=== PATIENT | female | born 1940 | race Caucasian/White ===

== ENCOUNTER 2017-06-01 07:05 | Day surgery (SDC) | payer MEDICARE ==
[~2017-06-01] VITALS: Ht 165.1 cm; Wt 68.0 kg
[~2017-06-01 07:05] MED LIST: AMBI10TA PO; ATIV1TAB10 PO; COLA100C5 PO; FOLI400T PO; MELO15TA4 PO; METH1TAB2 PO; METH2.5TA PO; MULT1TAB10 PO; OXYB15TA PO; PRAV80TA2 PO; SERT-155 PO; SUPECAP PO; vitafusion PO
[2017-06-01] MEDS ORDERED: LR 1,000 ML IV SCH ×2 (07:30→09:45)
[2017-06-01] MEDS ORDERED: fentaNYL 100 MCG/2 ML INJECTION (J3010) As Ordered ONE (07:53)
[2017-06-01] MEDS ORDERED: MIDAZOLAM INJ 2 MG/2 ML VIAL (J2250) As Ordered ONE (07:53)
[2017-06-01] MEDS ORDERED: ePHEDrine SULFATE 25 MG/5 ML(5MG/ML) SYRINGE As Ordered ONE (07:56)
[2017-06-01] MEDS ORDERED: LIDOCAINE 1% SDV INJ 30 ML VIAL As Ordered ONE (08:32)
[2017-06-01] MEDS ORDERED: dexameTHASONE 4 MG/ML 1ML VIAL (J1100) As Ordered ONE (08:56)
[2017-06-01] MEDS ORDERED: KETOROLAC 60 MG/2 ML VIAL (J1885) As Ordered ONE (08:56)
[2017-06-01] MEDS ORDERED: PROPOFOL 200 MG/20 ML VIAL As Ordered ONE (08:56)
[2017-06-01] MEDS ORDERED: LIDOCAINE 2% INJ 100 MG/5 ML SDV (FOR ANES.) As Ordered ONE (08:56)
[2017-06-01] MEDS ORDERED: ONDANSETRON 4MG/2ML VIAL (J2405) As Ordered ONE (08:56)
[2017-06-01] MEDS ORDERED: ONDANSETRON 4MG/2ML VIAL (J2405) IV PRN (09:45)
[2017-06-01] MEDS ORDERED: fentaNYL 100 MCG/2 ML INJECTION (J3010) IV PRN (09:45)
[2017-06-01 12:45] VITALS: BP 143/70
--- NOTE | 2017-06-01 22:29 | RO ---
DATE OF PROCEDURE: 06/01/2017 PREOPERATIVE DIAGNOSIS: Urinary retention. POSTOPERATIVE DIAGNOSIS: Urinary retention. PROCEDURE: Placement of a suprapubic tube and cystoscopy. SURGEON: Dr. Kristyn Cole APN: ANESTHESIA: General. MEDICATIONS: Ancef 2 grams preoperatively. DRAINS: #18-[place] Hoyos catheter. 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 ESTIMATED BLOOD LOSS: 10 mL COMPLICATIONS: None. INDICATIONS FOR PROCEDURE: The patient is a 76-year-old female with a history of recurrent urinary tract infections, incomplete bladder emptying, and a longstanding history of severe urinary urgency and urge incontinence in a patient who had been managed by an indwelling Hoyos catheter since a cystoscopy in 11/08 showed an end- stage bladder. Urodynamic study (UDS) 10/07 showed no detrusor contractility with post void residuals (PVRs) in the 300 range. Unfortunately, the Hoyos catheter continued to fall out even with 30 mL in the balloon, so IT was decided to go ahead and place a suprapubic tube. All different options, alternatives, risks, and benefits were discussed and informed consent was obtained in both verbal and written form. DESCRIPTION OF PROCEDURE: The patient was brought into the operating room. Sequential compression devices were in place and preoperative antibiotics had been given. General anesthesia was induced. The patient was then placed in the lithotomy position, and she had a full vaginal prep and also abdominal prep. At this point, a #21-Tanzanian cystoscope was inserted. The urethra was opened, and there was no evidence of injury or abnormalities. Upon entering the bladder, both ureteral orifices were seen. There was no erythematous patches, lesions or stones. There were multiple diverticulum especially on the right lateral wall. At this point, a Jossue forceps was placed through the urethra up to the suprapubic area where an incision was then made. The Jossue forceps was then pushed to the end of the bladder lining where another incision was made and then this was pushed up through skin An #18-T[place] Hoyos catheter was then grasped by the Jossue forceps and brought back into the bladder. The balloon was filled with 20 mL. The catheter was irrigated and working well. At this point, a dressing was placed with some tension on the catheter, bringing the balloon and the bladder lining up to the suprapubic area. The patient tolerated the procedure well and was returned to the recovery room in stable condition.
== END 2017-06-01 13:04 | disposition home or self-care (01) ==
LOC: M SDC 07:05
PROVIDERS: ATTEND Specialist
DX: R33.9 Retention of urine, unspecified (principal); R32 Unspecified urinary incontinence; G35 Multiple sclerosis; I73.00 Raynaud's syndrome without gangrene; M06.9 Rheumatoid arthritis, unspecified; I10 Essential (primary) hypertension; F32.9 Major depressive disorder, single episode, unspecified; R94.31 Abnormal electrocardiogram [ECG] [EKG]; M15.0 Primary generalized (osteo)arthritis; Z88.5 Allergy status to narcotic agent; Z79.899 Other long term (current) drug therapy; Z79.82 Long term (current) use of aspirin; Z96.611 Presence of right artificial shoulder joint; Z96.641 Presence of right artificial hip joint; Z98.51 Tubal ligation status; Z86.19 Personal history of other infectious and parasitic diseases; Z78.0 Asymptomatic menopausal state; Z87.891 Personal history of nicotine dependence
CPT/HCPCS: 51102; J0690; J1100; J1885; J2405; J3010

== ENCOUNTER 2022-02-03 03:05 | Inpatient (IN) | payer MEDICARE, MEDICAID ==
[~2022-02-03] VITALS: Ht 165.1 cm; Wt 62.8 kg
[2022-02-03] MEDS: NS 1,000 ML IV SCH ×2 (02:51→06:34)
[~2022-02-03 03:05] MED LIST changes: -FOLI400T PO; +FOLI400T13 PO; +MELO15TA28 PO; -MELO15TA4 PO; +METH-855 PO; -METH1TAB2 PO; +METH2.5T48 PO; -METH2.5TA PO; -OXYB15TA PO; +OXYB15TA14 PO; -SERT-155 PO; +SERT50TA29 PO
[2022-02-03 04:59] VITALS: BP 110/62
[2022-02-03 05:03] VITALS: BP 110/62
[2022-02-03 06:00] VITALS: BP 115/68
[2022-02-03] MEDS ORDERED: VANCOMYCIN HCL 15 MG in IV FLUID PLACE HOLDER 1 EA IV SCH (06:10)
[2022-02-03] MEDS ORDERED: VITMTA PO (07:39)
[2022-02-03] MEDS ORDERED: SENN-80 PO (07:39)
[2022-02-03] MEDS ORDERED: FLEEENE12 PR (07:39)
[2022-02-03] MEDS ORDERED: VITA500C24 PO (07:39)
[2022-02-03] MEDS ORDERED: MILKSUS3 PO (07:39)
[2022-02-03] MEDS ORDERED: QC A650T3 PO (07:39)
[2022-02-03] MEDS ORDERED: SERT25TA85 PO (07:39)
[2022-02-03] MEDS ORDERED: LACT20EL PO (07:39)
[2022-02-03] MEDS ORDERED: MORP15TA2 PO (07:39)
[2022-02-03] MEDS ORDERED: FOLI1TAB11 PO (07:39)
[2022-02-03] MEDS ORDERED: PRAV40TA2 PO (07:39)
[2022-02-03] MEDS ORDERED: BACL10TA2 PO (07:39)
[2022-02-03] MEDS ORDERED: D-MA500C2 PO (07:39)
[2022-02-03] MEDS ORDERED: BISA10SU4 PR (07:39)
[2022-02-03] MEDS ORDERED: HOME MED LIST COMPLETE! XX SCH (07:45)
[2022-02-03 09:25] LABS: BASO # 0.1 10^3/uL (0.0-0.2); BASO % 0.5 % (0.0-1.0); EOS # 0.1 10^3/uL (0.0-0.5); EOS % 0.4 % (0.0-3.0); HEMATOCRIT 26.2 % (36.0-47.0); HEMOGLOBIN 8.1 g/dl (12.0-15.5); LYMPH # 1.5 10^3/uL (1.5-5.0); LYMPH % 9.9 % (24.0-44.0); MEAN CORPUSCULAR HEMOGLOBIN 31.8 pg (27.0-33.0); MEAN CORPUSCULAR HGB CONC 30.9 g/dl (32.0-36.5); MEAN CORPUSCULAR VOLUME 102.7 fl (80.0-96.0); MONO # 1.1 10^3/uL (0.0-0.8); MONO % 7.4 % (2.0-8.0); NEUTROPHILS # 12.1 10^3/uL (1.5-8.5); NEUTROPHILS % 81.2 % (36.0-66.0); PLATELET COUNT, AUTOMATED 334 10^3/uL (150-450); RED BLOOD COUNT 2.55 10^6/uL (4.00-5.40); WHITE BLOOD COUNT 14.9 10^3/uL (4.0-10.0)
[2022-02-03 09:49] LABS: ALBUMIN 2.2 GM/DL (3.2-5.2); ALT/SGPT 32 U/L (12-78); BILIRUBIN,TOTAL 0.4 MG/DL (0.2-1.0); BLOOD UREA NITROGEN 12 MG/DL (7-18); CALCIUM LEVEL 8.3 MG/DL (8.8-10.2); CARBON DIOXIDE LEVEL 27 MEQ/L (21-32); CHLORIDE LEVEL 109 MEQ/L (98-107); CREATININE FOR GFR 0.78 MG/DL (0.55-1.30); GLOMERULAR FILTRATION RATE > 60.0 (>32); GLUCOSE, FASTING 108 MG/DL (70-100); MAGNESIUM LEVEL 2.4 MG/DL (1.8-2.4); PHOSPHORUS LEVEL 3.8 MG/DL (2.5-4.9); SODIUM LEVEL 141 MEQ/L (136-145)
[2022-02-03] MEDS: HEPARIN SOD (PORCINE) 5000UNITS/ML 1ML VIAL/SYRINGE SC SCH ×2 (10:22→20:30)
[2022-02-03] MEDS: PIPERACILLIN/TAZOBACTAM SOD 3.375 GM in D5W MINI-BAG PLUS 50 ML IV SCH ×3 (10:22→21:00)
[2022-02-03] MEDS ORDERED: MORPHINE 30 MG TAB **MSIR PO PRN (12:40)
[2022-02-03] MEDS: VANCOMYCIN HCL 750 MG, VIAL MATE ADAPTER 1 EACH in NS 250 ML IV SCH ×2 (12:44→23:33)
[2022-02-03] MEDS ORDERED: PILL CUTTER 1 EACH XX PRN (13:40)
[2022-02-03 14:00] VITALS: BP 122/59
[2022-02-03] MEDS: SENNA 8.6 MG TAB (SENOKOT) PO SCH ×2 (15:57→20:30)
[2022-02-03] MEDS: ACETAMINOPHEN TAB 650MG DOSE (2X325MG) PO PRN ×2 (15:58→23:06)
[2022-02-03 20:00] VITALS: BP 106/53
[2022-02-03] MEDS: PRAVASTATIN 20 MG TAB PO SCH (20:30)
[2022-02-03 22:55] VITALS: BP 106/77
[2022-02-03] MEDS ORDERED: MORPHINE 2 MG/ML 1ML VIAL IV ONE (23:25)
[2022-02-04] MEDS: PIPERACILLIN/TAZOBACTAM SOD 3.375 GM in D5W MINI-BAG PLUS 50 ML IV SCH ×4 (03:25→21:42)
[2022-02-04 06:00] VITALS: BP 121/56
[2022-02-04 08:01] LABS: BASO # 0.1 10^3/uL (0.0-0.2); BASO % 0.8 % (0.0-1.0); EOS # 0.1 10^3/uL (0.0-0.5); EOS % 1.4 % (0.0-3.0); HEMATOCRIT 24.3 % (36.0-47.0); HEMOGLOBIN 7.4 g/dl (12.0-15.5); LYMPH # 1.2 10^3/uL (1.5-5.0); MEAN CORPUSCULAR HEMOGLOBIN 31.6 pg (27.0-33.0); MEAN CORPUSCULAR HGB CONC 30.5 g/dl (32.0-36.5); MEAN CORPUSCULAR VOLUME 103.8 fl (80.0-96.0); MONO # 0.6 10^3/uL (0.0-0.8); MONO % 6.7 % (2.0-8.0); NEUTROPHILS # 6.4 10^3/uL (1.5-8.5); NEUTROPHILS % 76.6 % (36.0-66.0); PLATELET COUNT, AUTOMATED 303 10^3/uL (150-450); RED BLOOD COUNT 2.34 10^6/uL (4.00-5.40); WHITE BLOOD COUNT 8.4 10^3/uL (4.0-10.0)
[2022-02-04 08:26] LABS: ERYTHROCYTE SEDIMENTATION RATE 123 mm/hr (0-30)
[2022-02-04 08:31] LABS: ALBUMIN 2.2 GM/DL (3.2-5.2); ALT/SGPT 26 U/L (12-78); BILIRUBIN,TOTAL 0.4 MG/DL (0.2-1.0); BLOOD UREA NITROGEN 10 MG/DL (7-18); CARBON DIOXIDE LEVEL 24 MEQ/L (21-32); CHLORIDE LEVEL 110 MEQ/L (98-107); CREATININE FOR GFR 0.58 MG/DL (0.55-1.30); GLOMERULAR FILTRATION RATE > 60.0 (>32); GLUCOSE, FASTING 76 MG/DL (70-100); MAGNESIUM LEVEL 2.2 MG/DL (1.8-2.4); PHOSPHORUS LEVEL 3.5 MG/DL (2.5-4.9); POTASSIUM SERUM 3.5 MEQ/L (3.5-5.1); SODIUM LEVEL 141 MEQ/L (136-145); TOTAL PROTEIN 5.6 GM/DL (6.4-8.2)
[2022-02-04] MEDS: HEPARIN SOD (PORCINE) 5000UNITS/ML 1ML VIAL/SYRINGE SC SCH ×2 (09:31→21:42)
[2022-02-04] MEDS: MORPHINE SULFATE ORAL SOLN 10 MG/5 ML UD SL PRN (09:31)
[2022-02-04] MEDS: SENNA 8.6 MG TAB (SENOKOT) PO SCH ×2 (09:32→21:00)
[2022-02-04] MEDS: SERTRALINE HCL 25 MG TABLET PO SCH (09:32)
[2022-02-04] MEDS: FOLIC ACID 1 MG TAB PO SCH (09:32)
[2022-02-04] MEDS: VANCOMYCIN HCL 750 MG, VIAL MATE ADAPTER 1 EACH in NS 250 ML IV SCH ×2 (12:14→23:37)
[2022-02-04 14:00] VITALS: BP 122/55
[2022-02-04 21:38] VITALS: BP 130/60
[2022-02-04] MEDS: PRAVASTATIN 20 MG TAB PO SCH (21:42)
[2022-02-05] MEDS: PIPERACILLIN/TAZOBACTAM SOD 3.375 GM in D5W MINI-BAG PLUS 50 ML IV SCH ×4 (03:41→21:03)
[2022-02-05] MEDS: POLYVINYL ALCOHOL OPHTH SOLN 15 ML(LIQUITEARS) OU PRN (03:41)
[2022-02-05] MEDS: MORPHINE SULFATE ORAL SOLN 10 MG/5 ML UD SL PRN ×2 (03:42→17:00)
[2022-02-05 06:00] VITALS: BP 120/59
[2022-02-05 06:36] LABS: BASO # 0.1 10^3/uL (0.0-0.2); BASO % 0.9 % (0.0-1.0); EOS # 0.2 10^3/uL (0.0-0.5); EOS % 1.4 % (0.0-3.0); HEMATOCRIT 28.4 % (36.0-47.0); HEMOGLOBIN 8.6 g/dl (12.0-15.5); LYMPH # 1.3 10^3/uL (1.5-5.0); LYMPH % 12.2 % (24.0-44.0); MEAN CORPUSCULAR HEMOGLOBIN 30.8 pg (27.0-33.0); MEAN CORPUSCULAR HGB CONC 30.3 g/dl (32.0-36.5); MEAN CORPUSCULAR VOLUME 101.8 fl (80.0-96.0); MONO # 0.7 10^3/uL (0.0-0.8); MONO % 6.7 % (2.0-8.0); NEUTROPHILS # 8.2 10^3/uL (1.5-8.5); NEUTROPHILS % 77.9 % (36.0-66.0); RED BLOOD COUNT 2.79 10^6/uL (4.00-5.40); WHITE BLOOD COUNT 10.5 10^3/uL (4.0-10.0)
[2022-02-05 06:59] LABS: PLATELET COUNT, AUTOMATED 412 10^3/uL (150-450)
[2022-02-05 07:06] LABS: BLOOD UREA NITROGEN 8 MG/DL (7-18); C REACTIVE PROTEIN QUANTITATIV 8.26 MG/DL (0.00-0.30); CALCIUM LEVEL 7.4 MG/DL (8.8-10.2); CARBON DIOXIDE LEVEL 23 MEQ/L (21-32); CHLORIDE LEVEL 108 MEQ/L (98-107); CREATININE FOR GFR 0.67 MG/DL (0.55-1.30); GLOMERULAR FILTRATION RATE > 60.0 (>32); GLUCOSE, FASTING 106 MG/DL (70-100); MAGNESIUM LEVEL 2.1 MG/DL (1.8-2.4); PHOSPHORUS LEVEL 2.9 MG/DL (2.5-4.9); POTASSIUM SERUM 3.6 MEQ/L (3.5-5.1); SODIUM LEVEL 139 MEQ/L (136-145)
[2022-02-05 07:43] LABS: ERYTHROCYTE SEDIMENTATION RATE 109 mm/hr (0-30)
[2022-02-05] MEDS: SENNA 8.6 MG TAB (SENOKOT) PO SCH ×2 (09:28→21:00)
[2022-02-05] MEDS: FOLIC ACID 1 MG TAB PO SCH (09:28)
[2022-02-05] MEDS: SERTRALINE HCL 25 MG TABLET PO SCH (09:28)
[2022-02-05] MEDS: HEPARIN SOD (PORCINE) 5000UNITS/ML 1ML VIAL/SYRINGE SC SCH (09:29)
[2022-02-05 12:00] LABS: FERRITIN 309 NG/ML (8-252); IRON (FE) 20 UG/DL (50-170); PERCENT SATURATION 12.8 % (13.2-45.0); TOTAL IRON BINDING CAPACITY 156 UG/DL (250-450)
[2022-02-05 14:00] VITALS: BP 123/61
[2022-02-05] MEDS: VANCOMYCIN HCL 1,000 MG, VIAL MATE ADAPTER 1 EACH in NS 250 ML IV SCH (18:50)
[2022-02-05] MEDS: ACETAMINOPHEN TAB 650MG DOSE (2X325MG) PO PRN (21:03)
[2022-02-05] MEDS: ENOXAPARIN 40MG/0.4ML SYRINGE (J1650 PER 10MG) SC SCH (21:04)
[2022-02-05] MEDS: PRAVASTATIN 20 MG TAB PO SCH (21:04)
[2022-02-05 22:00] VITALS: BP 124/78
[2022-02-06] MEDS: MORPHINE SULFATE ORAL SOLN 10 MG/5 ML UD SL PRN ×2 (02:51→10:00)
[2022-02-06] MEDS: PIPERACILLIN/TAZOBACTAM SOD 3.375 GM in D5W MINI-BAG PLUS 50 ML IV SCH ×4 (03:26→22:37)
[2022-02-06 06:00] VITALS: BP 129/66
[2022-02-06 07:25] LABS: BASO # 0.1 10^3/uL (0.0-0.2); BASO % 0.7 % (0.0-1.0); EOS # 0.2 10^3/uL (0.0-0.5); HEMATOCRIT 25.4 % (36.0-47.0); HEMOGLOBIN 7.7 g/dl (12.0-15.5); LYMPH # 1.4 10^3/uL (1.5-5.0); LYMPH % 16.9 % (24.0-44.0); MEAN CORPUSCULAR HEMOGLOBIN 31.4 pg (27.0-33.0); MEAN CORPUSCULAR HGB CONC 30.3 g/dl (32.0-36.5); MEAN CORPUSCULAR VOLUME 103.7 fl (80.0-96.0); MONO # 0.8 10^3/uL (0.0-0.8); MONO % 9.8 % (2.0-8.0); PLATELET COUNT, AUTOMATED 317 10^3/uL (150-450); RED BLOOD COUNT 2.45 10^6/uL (4.00-5.40); WHITE BLOOD COUNT 8.5 10^3/uL (4.0-10.0)
[2022-02-06 08:00] LABS: ALBUMIN 1.9 GM/DL (3.2-5.2); ALT/SGPT 17 U/L (12-78); BILIRUBIN,TOTAL 0.3 MG/DL (0.2-1.0); BLOOD UREA NITROGEN 7 MG/DL (7-18); CARBON DIOXIDE LEVEL 25 MEQ/L (21-32); CHLORIDE LEVEL 116 MEQ/L (98-107); CREATININE FOR GFR 0.63 MG/DL (0.55-1.30); GLOMERULAR FILTRATION RATE > 60.0 (>32); GLUCOSE, FASTING 97 MG/DL (70-100); MAGNESIUM LEVEL 2.2 MG/DL (1.8-2.4); PHOSPHORUS LEVEL 2.8 MG/DL (2.5-4.9); POTASSIUM SERUM 3.8 MEQ/L (3.5-5.1); SODIUM LEVEL 146 MEQ/L (136-145); TOTAL PROTEIN 5.3 GM/DL (6.4-8.2)
[2022-02-06] MEDS: SENNA 8.6 MG TAB (SENOKOT) PO SCH ×2 (09:47→22:36)
[2022-02-06] MEDS: FOLIC ACID 1 MG TAB PO SCH (09:47)
[2022-02-06] MEDS: SERTRALINE HCL 25 MG TABLET PO SCH (09:48)
[2022-02-06 14:00] VITALS: BP 122/67
[2022-02-06] MEDS: VANCOMYCIN HCL 1,000 MG, VIAL MATE ADAPTER 1 EACH in NS 250 ML IV SCH (18:10)
[2022-02-06 22:00] VITALS: BP 106/53
[2022-02-06] MEDS: ACETAMINOPHEN TAB 650MG DOSE (2X325MG) PO PRN (22:37)
[2022-02-06] MEDS: ENOXAPARIN 40MG/0.4ML SYRINGE (J1650 PER 10MG) SC SCH (22:37)
[2022-02-06] MEDS: PRAVASTATIN 20 MG TAB PO SCH (22:37)
[2022-02-07] MEDS: PIPERACILLIN/TAZOBACTAM SOD 3.375 GM in D5W MINI-BAG PLUS 50 ML IV SCH ×4 (04:26→21:36)
[2022-02-07 06:00] VITALS: BP 124/57
[2022-02-07 06:48] LABS: BASO # 0.1 10^3/uL (0.0-0.2); EOS # 0.2 10^3/uL (0.0-0.5); EOS % 2.7 % (0.0-3.0); HEMATOCRIT 26.4 % (36.0-47.0); LYMPH # 1.8 10^3/uL (1.5-5.0); LYMPH % 22.5 % (24.0-44.0); MEAN CORPUSCULAR HEMOGLOBIN 31.4 pg (27.0-33.0); MEAN CORPUSCULAR HGB CONC 30.3 g/dl (32.0-36.5); MEAN CORPUSCULAR VOLUME 103.5 fl (80.0-96.0); MONO # 0.9 10^3/uL (0.0-0.8); NEUTROPHILS # 5.1 10^3/uL (1.5-8.5); NEUTROPHILS % 62.2 % (36.0-66.0); PLATELET COUNT, AUTOMATED 282 10^3/uL (150-450); RED BLOOD COUNT 2.55 10^6/uL (4.00-5.40); WHITE BLOOD COUNT 8.2 10^3/uL (4.0-10.0)
[2022-02-07 07:02] LABS: BLOOD UREA NITROGEN 6 MG/DL (7-18); C REACTIVE PROTEIN QUANTITATIV 3.62 MG/DL (0.00-0.30); CALCIUM LEVEL 7.9 MG/DL (8.8-10.2); CARBON DIOXIDE LEVEL 22 MEQ/L (21-32); CHLORIDE LEVEL 118 MEQ/L (98-107); CREATININE FOR GFR 0.56 MG/DL (0.55-1.30); GLOMERULAR FILTRATION RATE > 60.0 (>32); GLUCOSE, FASTING 75 MG/DL (70-100); MAGNESIUM LEVEL 2.1 MG/DL (1.8-2.4); PHOSPHORUS LEVEL 2.8 MG/DL (2.5-4.9); POTASSIUM SERUM 3.5 MEQ/L (3.5-5.1); SODIUM LEVEL 145 MEQ/L (136-145)
[2022-02-07 07:15] LABS: ERYTHROCYTE SEDIMENTATION RATE 86 mm/hr (0-30)
[2022-02-07 07:56] LABS: FOLATE 14.6 NG/ML
[2022-02-07] MEDS: SENNA 8.6 MG TAB (SENOKOT) PO SCH ×2 (08:54→21:37)
[2022-02-07] MEDS: SERTRALINE HCL 25 MG TABLET PO SCH (08:54)
[2022-02-07] MEDS: FOLIC ACID 1 MG TAB PO SCH (08:54)
[2022-02-07] MEDS: MORPHINE SULFATE ORAL SOLN 10 MG/5 ML UD SL PRN ×2 (09:06→16:37)
[2022-02-07 14:00] VITALS: BP 95/60
[2022-02-07 14:42] VITALS: BP 104/60
[2022-02-07] MEDS: ACETAMINOPHEN TAB 650MG DOSE (2X325MG) PO PRN (15:51)
[2022-02-07] MEDS: VANCOMYCIN HCL 1,000 MG, VIAL MATE ADAPTER 1 EACH in NS 250 ML IV SCH (17:46)
[2022-02-07] MEDS ORDERED: KETOROLAC 30 MG/ML 1ML VIAL IV ONE (18:10)
[2022-02-07 20:00] VITALS: BP 112/58
[2022-02-07] MEDS: PRAVASTATIN 20 MG TAB PO SCH (21:35)
[2022-02-07] MEDS: ENOXAPARIN 40MG/0.4ML SYRINGE (J1650 PER 10MG) SC SCH (21:35)
[2022-02-07] MEDS: POLYVINYL ALCOHOL OPHTH SOLN 15 ML(LIQUITEARS) OU PRN (21:36)
[2022-02-08] MEDS: PIPERACILLIN/TAZOBACTAM SOD 3.375 GM in D5W MINI-BAG PLUS 50 ML IV SCH ×4 (04:43→21:58)
[2022-02-08 06:18] VITALS: BP 125/59
[2022-02-08] MEDS: POLYVINYL ALCOHOL OPHTH SOLN 15 ML(LIQUITEARS) OU PRN (08:00)
[2022-02-08 08:21] VITALS: BP 137/58
[2022-02-08] MEDS: SERTRALINE HCL 25 MG TABLET PO SCH (09:24)
[2022-02-08] MEDS: FOLIC ACID 1 MG TAB PO SCH (09:24)
[2022-02-08] MEDS: SENNA 8.6 MG TAB (SENOKOT) PO SCH ×2 (09:24→21:57)
[2022-02-08 09:42] LABS: BASO # 0.1 10^3/uL (0.0-0.2); BASO % 0.7 % (0.0-1.0); EOS # 0.2 10^3/uL (0.0-0.5); EOS % 2.8 % (0.0-3.0); HEMATOCRIT 27.1 % (36.0-47.0); HEMOGLOBIN 8.2 g/dl (12.0-15.5); LYMPH # 1.3 10^3/uL (1.5-5.0); LYMPH % 15.8 % (24.0-44.0); MEAN CORPUSCULAR HEMOGLOBIN 31.5 pg (27.0-33.0); MEAN CORPUSCULAR HGB CONC 30.3 g/dl (32.0-36.5); MEAN CORPUSCULAR VOLUME 104.2 fl (80.0-96.0); MONO # 0.6 10^3/uL (0.0-0.8); NEUTROPHILS # 6.1 10^3/uL (1.5-8.5); NEUTROPHILS % 73.1 % (36.0-66.0); PLATELET COUNT, AUTOMATED 322 10^3/uL (150-450); WHITE BLOOD COUNT 8.3 10^3/uL (4.0-10.0)
[2022-02-08 10:00] LABS: ERYTHROCYTE SEDIMENTATION RATE 79 mm/hr (0-30)
[2022-02-08 10:07] LABS: BLOOD UREA NITROGEN 7 MG/DL (7-18); C REACTIVE PROTEIN QUANTITATIV 2.88 MG/DL (0.00-0.30); CALCIUM LEVEL 8.1 MG/DL (8.8-10.2); CARBON DIOXIDE LEVEL 24 MEQ/L (21-32); CHLORIDE LEVEL 114 MEQ/L (98-107); CREATININE FOR GFR 0.66 MG/DL (0.55-1.30); GLOMERULAR FILTRATION RATE > 60.0 (>32); GLUCOSE, FASTING 117 MG/DL (70-100); MAGNESIUM LEVEL 2.1 MG/DL (1.8-2.4); PHOSPHORUS LEVEL 2.5 MG/DL (2.5-4.9); POTASSIUM SERUM 3.5 MEQ/L (3.5-5.1); SODIUM LEVEL 145 MEQ/L (136-145); VANCOMYCIN RANDOM 16.3 UG/ML
[2022-02-08] MEDS: ACETAMINOPHEN TAB 650MG DOSE (2X325MG) PO PRN (10:11)
[2022-02-08 14:00] VITALS: BP 141/68
[2022-02-08] MEDS: PRAVASTATIN 20 MG TAB PO SCH (21:57)
[2022-02-08] MEDS: ENOXAPARIN 40MG/0.4ML SYRINGE (J1650 PER 10MG) SC SCH (21:58)
[2022-02-08 22:00] VITALS: BP 146/75
[2022-02-09] MEDS: PIPERACILLIN/TAZOBACTAM SOD 3.375 GM in D5W MINI-BAG PLUS 50 ML IV SCH ×4 (04:15→20:26)
[2022-02-09 06:00] VITALS: BP 158/76
[2022-02-09 08:17] LABS: BLOOD UREA NITROGEN 11 MG/DL (7-18); CALCIUM LEVEL 8.2 MG/DL (8.8-10.2); CARBON DIOXIDE LEVEL 26 MEQ/L (21-32); CHLORIDE LEVEL 112 MEQ/L (98-107); CREATININE FOR GFR 0.56 MG/DL (0.55-1.30); GLOMERULAR FILTRATION RATE > 60.0 (>32); GLUCOSE, FASTING 95 MG/DL (70-100); POTASSIUM SERUM 3.1 MEQ/L (3.5-5.1); SODIUM LEVEL 145 MEQ/L (136-145); VANCOMYCIN RANDOM 10.6 UG/ML
[2022-02-09] MEDS ORDERED: VANCOMYCIN HCL 500 MG in D5W MINI-BAG PLUS 100 ML IV SCH (09:00)
[2022-02-09] MEDS: SERTRALINE HCL 25 MG TABLET PO SCH (09:08)
[2022-02-09] MEDS: SENNA 8.6 MG TAB (SENOKOT) PO SCH ×2 (09:09→20:26)
[2022-02-09] MEDS: FOLIC ACID 1 MG TAB PO SCH (09:09)
[2022-02-09] MEDS ORDERED: POTASSIUM CHLORIDE 10MEQ SR TABLET PO ONE (12:30)
[2022-02-09] MEDS ORDERED: POTASSIUM CHLORIDE 10% LIQ 20 MEQ/15 ML UDC PO ONE (12:55)
[2022-02-09 14:00] VITALS: BP 126/59
[2022-02-09] MEDS: PRAVASTATIN 20 MG TAB PO SCH (20:26)
[2022-02-09] MEDS: ENOXAPARIN 40MG/0.4ML SYRINGE (J1650 PER 10MG) SC SCH (20:26)
[2022-02-09] MEDS: ACETAMINOPHEN TAB 650MG DOSE (2X325MG) PO PRN (20:27)
[2022-02-09 22:00] VITALS: BP 132/62
[2022-02-10] MEDS: D5W/0.45% SODIUM CHLORIDE 1,000 ML IV SCH ×3 (00:20→21:06)
[2022-02-10] MEDS: PIPERACILLIN/TAZOBACTAM SOD 3.375 GM in D5W MINI-BAG PLUS 50 ML IV SCH ×4 (04:27→21:02)
[2022-02-10 06:00] VITALS: BP 156/74
[2022-02-10 08:15] LABS: HEMATOCRIT 30.5 % (36.0-47.0); HEMOGLOBIN 9.6 g/dl (12.0-15.5); MEAN CORPUSCULAR HGB CONC 31.5 g/dl (32.0-36.5); MEAN CORPUSCULAR VOLUME 101.7 fl (80.0-96.0); PLATELET COUNT, AUTOMATED 337 10^3/uL (150-450); WHITE BLOOD COUNT 7.5 10^3/uL (4.0-10.0)
[2022-02-10 08:38] LABS: ERYTHROCYTE SEDIMENTATION RATE 96 mm/hr (0-30)
[2022-02-10 08:40] LABS: BLOOD UREA NITROGEN 8 MG/DL (7-18); C REACTIVE PROTEIN QUANTITATIV 1.42 MG/DL (0.00-0.30); CALCIUM LEVEL 8.2 MG/DL (8.8-10.2); CARBON DIOXIDE LEVEL 29 MEQ/L (21-32); CHLORIDE LEVEL 111 MEQ/L (98-107); CREATININE FOR GFR 0.59 MG/DL (0.55-1.30); GLOMERULAR FILTRATION RATE > 60.0 (>32); GLUCOSE, FASTING 98 MG/DL (70-100); MAGNESIUM LEVEL 2.2 MG/DL (1.8-2.4); POTASSIUM SERUM 3.2 MEQ/L (3.5-5.1); SODIUM LEVEL 148 MEQ/L (136-145)
[2022-02-10 09:02] LABS: ATYPICAL LYMPH 2 % (0-5); BASOPHILS 3 % (0-1); EOSINOPHILS 5 % (0-3); LYMPHOCYTES 16 % (16-44); MONOCYTES 5 % (0-5); NEUTROPHILS 67 % (28-66); OVALOCYTES 2+
[2022-02-10 09:03] LABS: PLATELET ESTIMATE NORMAL (NORMAL)
[2022-02-10] MEDS: MORPHINE SULFATE ORAL SOLN 10 MG/5 ML UD SL PRN (09:23)
[2022-02-10] MEDS: VANCOMYCIN HCL 750 MG, VIAL MATE ADAPTER 1 EACH in NS 250 ML IV SCH (09:24)
[2022-02-10] MEDS: SENNA 8.6 MG TAB (SENOKOT) PO SCH ×2 (09:25→21:02)
[2022-02-10] MEDS: SERTRALINE HCL 25 MG TABLET PO SCH (09:25)
[2022-02-10] MEDS: FOLIC ACID 1 MG TAB PO SCH (09:25)
[2022-02-10] MEDS ORDERED: MORPHINE 10MG/0.5ML ORAL CONCENTRATE SOLUTION U/D SL PRN (13:15)
[2022-02-10] MEDS ORDERED: propofoL 200 MG/20 ML VIAL As Ordered ONE (13:30)
[2022-02-10] MEDS ORDERED: ROCURONIUM BROMIDE 50 MG/5 ML VIAL As Ordered ONE (13:30)
[2022-02-10] MEDS ORDERED: fentaNYL 100 MCG/2 ML INJECTION As Ordered ONE (13:32)
[2022-02-10] MEDS ORDERED: ONDANSETRON 4MG/2ML VIAL As Ordered ONE (14:14)
[2022-02-10] MEDS ORDERED: SUGAMMADEX SODIUM 500 MG/5 ML VIAL (BRIDION) As Ordered ONE (14:15)
[2022-02-10] MEDS ORDERED: ePHEDrine SULFATE 25 MG/5 ML(5MG/ML) SYRINGE As Ordered ONE (14:16)
[2022-02-10] MEDS ORDERED: HYDROmorphone HCL 2MG/ML 1ML VIAL As Ordered ONE (14:22)
[2022-02-10] MEDS ORDERED: ACETAMINOPHEN 1000MG 100ML IV BTL (OFIRMEV) (J0131 PER 10MG) As Ordered ONE (15:16)
[2022-02-10] MEDS ORDERED: fentaNYL 100 MCG/2 ML INJECTION IV PRN (16:00)
[2022-02-10] MEDS ORDERED: oxyCODONE 5MG TAB PO PRN (16:00)
[2022-02-10] MEDS ORDERED: LR 1,000 ML IV SCH (16:00)
[2022-02-10] MEDS ORDERED: ONDANSETRON 4MG/2ML VIAL IV PRN (16:00)
[2022-02-10] MEDS ORDERED: MEPERIDINE INJ 25 MG/ML VIAL (J2175) IV PRN (16:00)
[2022-02-10 16:33] VITALS: BP 101/53
[2022-02-10 17:00] VITALS: BP 101/52
[2022-02-10 18:00] VITALS: BP 102/53
[2022-02-10 19:00] VITALS: BP 131/67
[2022-02-10 20:54] VITALS: BP 123/61
[2022-02-10] MEDS: PRAVASTATIN 20 MG TAB PO SCH (21:02)
[2022-02-10] MEDS: PERCOCET 5MG/325MG TAB PO PRN (21:12)
[2022-02-11] VITALS (8 sets, daily range): BP systolic 109–128; BP diastolic 47–58
[2022-02-11] MEDS: HYDROMORPHONE HCL 0.5 MG/ 0.5 ML SYRINGE (J1170 PER 1) IV PRN ×2 (00:02→20:32)
[2022-02-11] MEDS: PIPERACILLIN/TAZOBACTAM SOD 3.375 GM in D5W MINI-BAG PLUS 50 ML IV SCH ×2 (04:23→10:23)
[2022-02-11] MEDS: SERTRALINE HCL 25 MG TABLET PO SCH (07:38)
[2022-02-11] MEDS: POTASSIUM CHLORIDE 10MEQ SR TABLET PO SCH (07:39)
[2022-02-11] MEDS: FOLIC ACID 1 MG TAB PO SCH (07:40)
[2022-02-11] MEDS: SENNA 8.6 MG TAB (SENOKOT) PO SCH ×2 (07:40→20:31)
[2022-02-11] MEDS: PERCOCET 5MG/325MG TAB PO PRN ×3 (07:42→16:53)
[2022-02-11 08:40] LABS: HEMOGLOBIN 8.2 g/dl (12.0-15.5); MEAN CORPUSCULAR HEMOGLOBIN 31.8 pg (27.0-33.0); MEAN CORPUSCULAR HGB CONC 30.4 g/dl (32.0-36.5); MEAN CORPUSCULAR VOLUME 104.7 fl (80.0-96.0); PLATELET COUNT, AUTOMATED 303 10^3/uL (150-450); RED BLOOD COUNT 2.58 10^6/uL (4.00-5.40); WHITE BLOOD COUNT 11.4 10^3/uL (4.0-10.0)
[2022-02-11 09:00] LABS: BLOOD UREA NITROGEN 7 MG/DL (7-18); CALCIUM LEVEL 7.7 MG/DL (8.8-10.2); CARBON DIOXIDE LEVEL 26 MEQ/L (21-32); CHLORIDE LEVEL 109 MEQ/L (98-107); CREATININE FOR GFR 0.69 MG/DL (0.55-1.30); GLOMERULAR FILTRATION RATE > 60.0 (>32); GLUCOSE, FASTING 141 MG/DL (70-100); MAGNESIUM LEVEL 2.1 MG/DL (1.8-2.4); PHOSPHORUS LEVEL 3.4 MG/DL (2.5-4.9); POTASSIUM SERUM 3.1 MEQ/L (3.5-5.1); SODIUM LEVEL 145 MEQ/L (136-145)
[2022-02-11 09:08] LABS: ATYPICAL LYMPH 2 % (0-5); EOSINOPHILS 2 % (0-3); LYMPHOCYTES 7 % (16-44); MONOCYTES 12 % (0-5); NEUTROPHILS 76 % (28-66)
[2022-02-11 09:09] LABS: OVALOCYTES 1+; TEAR DROP CELLS 1+
[2022-02-11 09:10] LABS: MICROCYTOSIS 1+; PLATELET ESTIMATE NORMAL (NORMAL)
[2022-02-11] MEDS: VANCOMYCIN HCL 750 MG, VIAL MATE ADAPTER 1 EACH in NS 250 ML IV SCH (09:10)
[2022-02-11] MEDS: D5W/0.45% SODIUM CHLORIDE 1,000 ML IV SCH (16:54)
[2022-02-11] MEDS: ACETAMINOPHEN TAB 650MG DOSE (2X325MG) PO PRN (18:17)
[2022-02-11] MEDS: PRAVASTATIN 20 MG TAB PO SCH (20:31)
[2022-02-11] MEDS: ENOXAPARIN 40MG/0.4ML SYRINGE (J1650 PER 10MG) SC SCH (20:31)
[2022-02-12] MEDS: PERCOCET 5MG/325MG TAB PO PRN ×4 (03:32→19:57)
[2022-02-12 06:40] VITALS: BP 122/61
[2022-02-12] MEDS: SENNA 8.6 MG TAB (SENOKOT) PO SCH ×2 (09:19→19:56)
[2022-02-12] MEDS: SERTRALINE HCL 25 MG TABLET PO SCH (09:41)
[2022-02-12] MEDS: FOLIC ACID 1 MG TAB PO SCH (09:42)
[2022-02-12] MEDS: POTASSIUM CHLORIDE 10MEQ SR TABLET PO SCH (09:44)
[2022-02-12 10:00] VITALS: BP 122/74
[2022-02-12 14:00] VITALS: BP 140/72
[2022-02-12 14:15] VITALS: BP 140/72
[2022-02-12 18:00] VITALS: BP 115/64
[2022-02-12] MEDS: ENOXAPARIN 40MG/0.4ML SYRINGE (J1650 PER 10MG) SC SCH (19:55)
[2022-02-12] MEDS: PRAVASTATIN 20 MG TAB PO SCH (19:56)
[2022-02-12 22:00] VITALS: BP 141/89
[2022-02-13 02:00] VITALS: BP 131/78
[2022-02-13 06:00] VITALS: BP 130/76
[2022-02-13 09:18] LABS: BASO # 0.1 10^3/uL (0.0-0.2); BASO % 1.2 % (0.0-1.0); EOS # 0.1 10^3/uL (0.0-0.5); EOS % 1.6 % (0.0-3.0); HEMATOCRIT 26.8 % (36.0-47.0); LYMPH # 1.7 10^3/uL (1.5-5.0); LYMPH % 20.2 % (24.0-44.0); MEAN CORPUSCULAR HEMOGLOBIN 30.9 pg (27.0-33.0); MEAN CORPUSCULAR HGB CONC 29.9 g/dl (32.0-36.5); MEAN CORPUSCULAR VOLUME 103.5 fl (80.0-96.0); MONO # 0.7 10^3/uL (0.0-0.8); MONO % 7.8 % (2.0-8.0); NEUTROPHILS # 5.9 10^3/uL (1.5-8.5); NEUTROPHILS % 68.6 % (36.0-66.0); PLATELET COUNT, AUTOMATED 239 10^3/uL (150-450); RED BLOOD COUNT 2.59 10^6/uL (4.00-5.40); WHITE BLOOD COUNT 8.6 10^3/uL (4.0-10.0)
[2022-02-13] MEDS: SENNA 8.6 MG TAB (SENOKOT) PO SCH ×2 (09:48→20:51)
[2022-02-13] MEDS: SERTRALINE HCL 25 MG TABLET PO SCH (09:48)
[2022-02-13] MEDS: PERCOCET 5MG/325MG TAB PO PRN ×2 (09:49→21:25)
[2022-02-13] MEDS: FOLIC ACID 1 MG TAB PO SCH (09:50)
[2022-02-13 09:57] LABS: BLOOD UREA NITROGEN 8 MG/DL (7-18); CARBON DIOXIDE LEVEL 29 MEQ/L (21-32); CHLORIDE LEVEL 112 MEQ/L (98-107); CREATININE FOR GFR 0.45 MG/DL (0.55-1.30); GLOMERULAR FILTRATION RATE > 60.0 (>32); GLUCOSE, FASTING 84 MG/DL (70-100); MAGNESIUM LEVEL 2.1 MG/DL (1.8-2.4); PHOSPHORUS LEVEL 2.8 MG/DL (2.5-4.9); POTASSIUM SERUM 4.2 MEQ/L (3.5-5.1); SODIUM LEVEL 143 MEQ/L (136-145)
[2022-02-13 10:00] VITALS: BP 96/46
[2022-02-13 14:00] VITALS: BP 115/51
[2022-02-13] MEDS: ENOXAPARIN 40MG/0.4ML SYRINGE (J1650 PER 10MG) SC SCH ×2 (20:51→20:58)
[2022-02-13] MEDS: PRAVASTATIN 20 MG TAB PO SCH (20:51)
[2022-02-13 22:18] VITALS: BP 141/61
[2022-02-14 06:00] VITALS: BP 139/62
[2022-02-14] MEDS: FOLIC ACID 1 MG TAB PO SCH (09:32)
[2022-02-14] MEDS: SENNA 8.6 MG TAB (SENOKOT) PO SCH ×2 (09:32→20:42)
[2022-02-14] MEDS: SERTRALINE HCL 25 MG TABLET PO SCH (09:33)
[2022-02-14 10:00] VITALS: BP 140/69
[2022-02-14] MEDS: ACETAMINOPHEN TAB 650MG DOSE (2X325MG) PO PRN ×2 (13:36→20:43)
[2022-02-14 14:00] VITALS: BP 139/67
[2022-02-14 18:00] VITALS: BP 138/67
[2022-02-14] MEDS: PERCOCET 5MG/325MG TAB PO PRN (18:00)
[2022-02-14] MEDS: PRAVASTATIN 20 MG TAB PO SCH (20:42)
[2022-02-14] MEDS: ENOXAPARIN 40MG/0.4ML SYRINGE (J1650 PER 10MG) SC SCH (21:00)
[2022-02-15 06:39] LABS: HEMATOCRIT 27.8 % (36.0-47.0); HEMOGLOBIN 8.4 g/dl (12.0-15.5); MEAN CORPUSCULAR HEMOGLOBIN 31.2 pg (27.0-33.0); MEAN CORPUSCULAR HGB CONC 30.2 g/dl (32.0-36.5); MEAN CORPUSCULAR VOLUME 103.3 fl (80.0-96.0); PLATELET COUNT, AUTOMATED 320 10^3/uL (150-450); RED BLOOD COUNT 2.69 10^6/uL (4.00-5.40); WHITE BLOOD COUNT 7.8 10^3/uL (4.0-10.0)
[2022-02-15 07:05] LABS: BLOOD UREA NITROGEN 10 MG/DL (7-18); CALCIUM LEVEL 8.4 MG/DL (8.8-10.2); CARBON DIOXIDE LEVEL 31 MEQ/L (21-32); CHLORIDE LEVEL 109 MEQ/L (98-107); CREATININE FOR GFR 0.62 MG/DL (0.55-1.30); GLOMERULAR FILTRATION RATE > 60.0 (>32); GLUCOSE, FASTING 94 MG/DL (70-100); MAGNESIUM LEVEL 2.4 MG/DL (1.8-2.4); PHOSPHORUS LEVEL 3.3 MG/DL (2.5-4.9); POTASSIUM SERUM 4.8 MEQ/L (3.5-5.1); SODIUM LEVEL 143 MEQ/L (136-145)
[2022-02-15] MEDS ORDERED: PERCOCET PO (07:36)
[2022-02-15] MEDS: SENNA 8.6 MG TAB (SENOKOT) PO SCH (09:03)
[2022-02-15] MEDS: SERTRALINE HCL 25 MG TABLET PO SCH (09:03)
[2022-02-15] MEDS: FOLIC ACID 1 MG TAB PO SCH (09:03)
[2022-02-15] MEDS: PERCOCET 5MG/325MG TAB PO PRN (10:01)
[2022-02-15 15:10] LABS: VITAMIN B12 LEVEL 384 PG/ML
== END 2022-02-15 10:20 | DRG 853 ==
LOC: M MS5PR 04:38
PROVIDERS: ADMIT Internal Medicine; ATTEND Internal Medicine
PROC: 0Y6H0Z2 Detachment at Right Lower Leg, Mid, Open Approach (ICD-10-PCS; principal; 2022-02-10 12:30)
DX: A41.9 Sepsis, unspecified organism (principal); L89.614 Pressure ulcer of right heel, stage 4; M86.9 Osteomyelitis, unspecified; I73.01 Raynaud's syndrome with gangrene; G35 Multiple sclerosis; Z96.0 Presence of urogenital implants; Z74.01 Bed confinement status; M19.90 Unspecified osteoarthritis, unspecified site; M06.9 Rheumatoid arthritis, unspecified; E78.5 Hyperlipidemia, unspecified; F32.A Depression, unspecified; Z90.49 Acquired absence of other specified parts of digestive tract; Z98.1 Arthrodesis status; Z96.641 Presence of right artificial hip joint; Z96.611 Presence of right artificial shoulder joint; Z87.891 Personal history of nicotine dependence; Z66 Do not resuscitate; Z79.899 Other long term (current) drug therapy; Z88.8 Allergy status to other drugs, medicaments and biological substances; F03.90 Unspecified dementia, unspecified severity, without behavioral disturbance, psychotic disturbance, mood disturbance, and anxiety; K59.09 Other constipation; E87.5 Hyperkalemia; N31.9 Neuromuscular dysfunction of bladder, unspecified; L89.892 Pressure ulcer of other site, stage 2